=== PATIENT | male | born 1945 | race Two or more races ===

== ENCOUNTER 2020-01-25 16:38 | Emergency (ER) | payer OTHER ==
[~2020-01-25] VITALS: Ht 165.1 cm; Wt 72.6 kg
[~2020-01-25 16:38] MED LIST: LEVSIN/SL0.125 MG PO; PREVACID30 MG PO
[2020-01-25] MEDS ORDERED: ATENOLOL50 MG PO (17:06)
[2020-01-25] MEDS ORDERED: LIPITOR20 MG PO (17:06)
[2020-01-25] MEDS ORDERED: LOTREL 10-20 M1 EACH PO (17:06)
[2020-01-25] MEDS ORDERED: PROTONIX40 MG PO (17:07)
== END 2020-01-25 20:15 | disposition home or self-care (01) ==
LOC: ER 16:38
DX: U07.1 COVID-19 (principal); R42 Dizziness and giddiness